=== PATIENT | female | born 1980 | race Caucasian/White ===

== ENCOUNTER → 2017-09-23 08:59 | Outpatient (POV) | payer OTHER, SELFPAY | PROVIDERS: Visit Provider Nurse Practitioner Acute Care | DX: Z00.00 Encounter for general adult medical examination without abnormal findings (principal) ==

== ENCOUNTER → 2018-05-28 13:28 | Outpatient (CLI) | payer OTHER, SELFPAY ==
--- NOTE | 2018-05-28 13:30 | MR_ITS ---
MR ankle LT wo/w con HISTORY: Lateral ankle pain following injury with bruising ITS.REASON: ankle pain ORDERING PHYSICIAN: Mary Espinosa DPM PATIENT AGE: 37 years Comparison: None TECHNIQUE: Standard multiplanar multiecho sequences are performed without and with gadolinium enhancement. FINDINGS: The distal aspect of the intraosseous ligament appears intact. The anterior tibiofibular ligament is thin and could be due to partial tear. The anterior talofibular ligament is not identified consistent with a complete tear. Small amount fluid is present at the region of the ATFL. The posterior tibiofibular and posterior talofibular ligaments are intact. The deltoid ligament appears intact There is decreased T1 and increased T2 signal above involving the medial aspect of the talus in its mid and anterior portion consistent with a bone contusion. This area shows some mild enhancement There are a few faint curvilinear areas of T1 hypointensity in this region which may indicate microfracture. The talar dome has an unremarkable appearance. Tendons about the ankle have an unremarkable appearance. IMPRESSION: 1. Complete tear of the anterior talofibular ligament with a small amount fluid in the expected region of the ATFL 2. Thinning of the anterior tibiofibular ligament which may indicate a partial tear. 3. Bone bruise/contusion with suspected microfracture of the mid to anterior aspect of the talus
== END ==
PROVIDERS: PCP Internal Medicine Adolescent Medicine; Visit Provider Podiatrist
DX: S93.402A Sprain of unspecified ligament of left ankle, initial encounter (principal); S93.432A Sprain of tibiofibular ligament of left ankle, initial encounter
CPT/HCPCS: 73223; A9576

== ENCOUNTER → 2018-06-20 11:05 | Outpatient (CLI) | payer OTHER, SELFPAY ==
--- NOTE | 2018-06-20 11:22 | XR_ITS ---
XR chest 2V HISTORY: Preoperative evaluation, follow-up abnormal chest x-ray ITS.REASON: PRO OP ORDERING PHYSICIAN: Mary Espinosa DPM PATIENT AGE: 37 years COMPARISON: 06/18/2017 FINDINGS: Unremarkable heart size. Increased soft tissue density is present along the right heart border consistent with prominent pericardial fat pad unchanged from the previous exam. The lungs are clear bilaterally. No lobar consolidation or collapse. There are mild degenerative changes in the thoracic spine. IMPRESSION: 1. No change with no acute finding 2. Right pericardial fat pad as a normal variant
[2018-06-20 12:02] LABS: Basophils % 0.4 % (0.1-2.0); Eosinophils # 0.4 K/mm3 (0.0-0.4); Eosinophils % 5.1 % (0.1-12.0); Hematocrit 39.8 % (37.0-47.0); Hemoglobin 12.9 g/dL (12.2-16.2); Lymphocytes # 2.2 K/mm3 (0.7-4.5); Lymphocytes % 25.5 % (10-50); Mean Corpuscular HGB Conc 32.3 g/dL (31.8-35.4); Mean Corpuscular Hemoglobin 28.6 pg (27.0-31.2); Mean Corpuscular Volume 88.7 fl (81-99); Monocytes # 0.5 K/mm3 (0.1-1.0); Monocytes % 5.3 % (1.7-9.3); Neutrophils # 5.5 K/mm3 (1.8-7.8); Neutrophils % 63.7 % (37.0-80.0); Platelet Count 219 K/mm3 (142-424); Red Blood Count 4.49 M/mm3 (4.20-5.40); Red Cell Distribution Width 14.3 % (11.5-17.5); White Blood Count 8.6 K/mm3 (4.8-10.8)
[2018-06-20 14:10] LABS: Anion Gap 15.7 mEq/L (5-15); Blood Urea Nitrogen 11 mg/dL (7-18); Calcium 8.7 mg/dL (8.5-10.1); Carbon Dioxide 23 mmol/L (21.0-32.0); Chloride 105 mmol/L (98-107); Creatinine,Serum 0.92 mg/dL (0.55-1.02); Estimated Glomerular Filt Rate 69 ml/min (>60); GFR (African American) 83 ML/MIN (>60); Glucose 112 mg/dL (74-106); Potassium 3.7 mmoL/L (3.5-5.1); Sodium 140 mmol/L (136-145)
[2018-06-23 09:34] LABS: Vitamin D 25 Hydroxy 25.7 ng/mL (30.0-100.0)
== END ==
PROVIDERS: PCP Internal Medicine Adolescent Medicine; Visit Provider Podiatrist
DX: Z01.818 Encounter for other preprocedural examination (principal); S93.432D Sprain of tibiofibular ligament of left ankle, subsequent encounter
CPT/HCPCS: 36415; 71046; 80048; 82652; 85025; 93005

== ENCOUNTER → 2018-07-10 10:56 | Outpatient (CLI) | payer OTHER, SELFPAY ==
--- NOTE | 2018-07-10 10:59 | XR_ITS ---
XR ankle wt bearing LT min 3V HISTORY: Follow-up surgery ITS.REASON: Post-op Views ORDERING PHYSICIAN: Mary Espinosa DPM PATIENT AGE: 37 years Comparison: 06/27/2018 FINDINGS: No significant change status post syndesmosis repair of the tibia and fibula with a lateral bone plate at the distal fibula with 2 lucent fixators from the lateral fibula to the medial aspect of the distal tibia anchored by 2 metallic buttons. There is good alignment.. There is a posterior splint IMPRESSION: Status post syndesmosis repair of the distal tib-fib with good alignment. The ankle mortise is preserved
--- NOTE | 2018-07-10 11:05 | HMH.ITSHM ---
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 []REGLAN,SIMVASTATIN,BENZEPRIL TRAZASONE
== END ==
PROVIDERS: PCP Internal Medicine Adolescent Medicine; Visit Provider Podiatrist
DX: S93.432A Sprain of tibiofibular ligament of left ankle, initial encounter (principal); Z98.890 Other specified postprocedural states
CPT/HCPCS: 73610

== ENCOUNTER → 2018-07-23 12:41 | Outpatient (CLI) | payer OTHER, SELFPAY ==
--- NOTE | 2018-07-23 12:44 | XR_ITS ---
XR ankle wt bearing LT min 3V HISTORY: Follow-up distal tib-fib repair ITS.REASON: postop views ORDERING PHYSICIAN: Mary Espinosa DPM PATIENT AGE: 37 years Comparison: 07/10/2018 FINDINGS: No significant change status post syndesmosis repair of the tibia and fibula with a lateral bone plate at the distal fibula with 2 lucent fixators from the lateral fibula to the medial aspect of the distal tibia anchored by 2 metallic buttons. There is good alignment.. Splint has been removed IMPRESSION: Status post syndesmosis repair of the distal tib-fib with good alignment. The ankle mortise is preserved
== END ==
PROVIDERS: PCP Internal Medicine Adolescent Medicine; Visit Provider Podiatrist
DX: Z98.890 Other specified postprocedural states (principal)
CPT/HCPCS: 73610

== ENCOUNTER → 2018-07-24 14:18 | Outpatient (CLI) | payer OTHER, SELFPAY ==
--- NOTE | 2018-07-24 14:24 | NVE_ITS ---
Venous Exam Indications: 729.5 Pain in limb. Patient had ankle surgery several months ago. She stopped taking Lovenox 07/19/18. She is complaining of calf pain in the posterior location. IMPRESSIONS 1. There is no evidence of significant Reflux. 2. No evidence of deep or superficial vein thrombosis involving the left lower extremity History: Left lower extremity pain. Left lower extremity venous duplex evaluation. Doppler flow study including spectral analysis, color and amaya scale imaging. Location: Vascular laboratory. Patient status: Outpatient. Tables: Venous flow and imaging: + +-------+ + Location Overall Flow properties + +-------+ + Left common femoral Patent Normal phasicity; spontaneous; normal augmentation; compressible + +-------+ + Left saphenofemoral junction Patent Compressible + +-------+ + Left profunda femoral Patent Compressible + +-------+ + Left femoral Patent Normal phasicity; spontaneous; normal augmentation; compressible + +-------+ + Left greater saphenous Patent Normal phasicity; spontaneous; normal augmentation; compressible + +-------+ + Left popliteal Patent Normal phasicity; spontaneous; normal augmentation; compressible + +-------+ + Left posterior tibial Patent Compressible + +-------+ + Left peroneal Patent Compressible + +-------+ + Left gastrocnemius Patent Compressible + +-------+ + Left soleal Patent Compressible + +-------+ + (Report amended ) Electronically signed by: Tony Salmon [id number]
== END ==
PROVIDERS: PCP Internal Medicine Adolescent Medicine; Visit Provider Podiatrist
DX: M79.662 Pain in left lower leg (principal)
CPT/HCPCS: 93971

== ENCOUNTER → 2018-08-04 16:56 | Outpatient (CLI) | payer OTHER, SELFPAY | PROVIDERS: Visit Provider Podiatrist | DX: Z98.890 Other specified postprocedural states (principal) | CPT/HCPCS: 87070; 87077; 87186; 87205 ==

== ENCOUNTER → 2018-08-11 11:02 | Outpatient (CLI) | payer OTHER, SELFPAY ==
--- NOTE | 2018-08-11 11:04 | XR_ITS ---
XR ankle wt min 3V HISTORY: Postop syndesmosis repair ITS.REASON: Post-op views ORDERING PHYSICIAN: Mary Espinosa DPM PATIENT AGE: 37 years Comparison: 07/23/2018 FINDINGS: No fracture or dislocation. No lytic or blastic change. There is normal mineralization.. The bone plate distal lateral fibula is stable and unchanged from previous study. 2 metallic fixators are again seen distal medial tibia. Horizontal radiolucencies are seen in the distal tibia and fibula from previous orthopedic hardware. The ankle mortise appears normal. There is no significant soft tissue swelling. IMPRESSION: Stable postoperative changes as noted
== END ==
PROVIDERS: PCP Internal Medicine Adolescent Medicine; Visit Provider Podiatrist
DX: Z98.890 Other specified postprocedural states (principal)
CPT/HCPCS: 73610

== ENCOUNTER 2018-10-15 08:00 | Outpatient (RCR) | payer OTHER, SELFPAY | END 2018-10-15 08:05 | disposition home or self-care (01) | LOC: PT 08:00 | PROVIDERS: Visit Provider Podiatrist | DX: Z98.890 Other specified postprocedural states (principal); M72.2 Plantar fascial fibromatosis; M76.62 Achilles tendinitis, left leg | CPT/HCPCS: 97010; 97033; 97110; 97140; 97163; 97164 ==

== ENCOUNTER → 2018-10-27 09:14 | Outpatient (CLI) | payer OTHER, SELFPAY ==
--- NOTE | 2018-10-27 09:17 | XR_ITS ---
XR ankle wt bearing LT min 3V HISTORY: Follow-up surgery ITS.REASON: post-op ORDERING PHYSICIAN: Mary Espinosa DPM PATIENT AGE: 38 years Comparison: 08/11/2018 FINDINGS: Status post distal tib-fib fixation as before with no change in orthopedic hardware with good alignment and preservation of the ankle mortise. There is a curvilinear lucency along the medial surface of the distal fibula which may indicate an old fracture. There is faint lucency along the lateral aspect of the talar dome not readily apparent on the previous exam. IMPRESSION: 1. Good alignment status post ORIF distal tib-fib. 2. Nonspecific lucency along the lateral aspect of the talar dome. Continued follow-up recommended. 3. Curvilinear lucency of the distal fibula medially suggesting an old fracture
== END ==
PROVIDERS: PCP Internal Medicine Adolescent Medicine; Visit Provider Podiatrist
DX: Z98.890 Other specified postprocedural states (principal)
CPT/HCPCS: 73610

== ENCOUNTER → 2019-05-04 10:26 | Outpatient (CLI) | payer OTHER, SELFPAY ==
--- NOTE | 2019-05-04 10:32 | XR_ITS ---
PROCEDURE: XR FOOT WT BEARING RT 3V CLINICAL INDICATION: comparison views the COMPARISON: FTR3 FOOT-RT-3 VIEWS from 10/07/2015 FTL3 FOOT-LT-3 VIEWS from 10/07/2015 [id number] XR foot LT min 3V from 06/27/2018 FINDINGS: No fracture or dislocation. No lytic or blastic change. There is normal mineralization. The joint spaces are well-preserved. No significant degenerative/arthritic changes. No erosive changes evident. Other findings:There is mild pes planus IMPRESSION: Mild pes planus otherwise negative. No significant change Dictated by: Tony Salmon MD 05/04/2019 11:07 Electronically signed by Tony Salmon MD in [place] 05/04/2019 11:07
--- NOTE | 2019-05-04 10:32 | XR_ITS ---
PROCEDURE: XR FOOT WT BEARING LT 3V CLINICAL INDICATION: pain Foot pain, bunion, COMPARISON: FTR3 FOOT-RT-3 VIEWS from 10/07/2015 FTL3 FOOT-LT-3 VIEWS from 10/07/2015 [id number] XR foot LT min 3V from 06/27/2018 FINDINGS: There is mild hallux valgus with mild osteoarthritic change and bunion formation at the 1st metatarsophalangeal junction. Minimal osteoarthritic changes present at the talonavicular joint. Postsurgical changes are present at the distal tib fib with a lateral bone plate at the fibula and 2 buttons along the medial aspect of the distal tibia posteriorly. Mild osteoarthritis of the 2nd MTP joint IMPRESSION: Mild hallux valgus and mild osteoarthritis of the 1st MTP and 2nd MTP joints and talonavicular region. Dictated by: Tony Salmon MD 05/04/2019 11:09 Electronically signed by Tony Salmon MD in [place] 05/04/2019 11:09
== END ==
PROVIDERS: PCP Internal Medicine Adolescent Medicine; Visit Provider Podiatrist
DX: M20.12 Hallux valgus (acquired), left foot (principal)
CPT/HCPCS: 73630

== ENCOUNTER → 2020-04-29 07:33 | Outpatient (CLI) | payer OTHER, SELFPAY ==
--- NOTE | 2020-04-29 07:38 | XR_ITS ---
PROCEDURE: XR KNEE LT 4V CLINICAL INDICATION: left knee pain COMPARISON: No exams were available for comparison FINDINGS: No fracture or dislocation. No lytic or blastic change. There is normal mineralization. The joint spaces are well-preserved. No significant degenerative/arthritic changes. No erosive changes evident. Other findings:None. IMPRESSION: No acute findings. Dictated by: Tony Salmon MD 04/29/2020 17:22 Tony Salmon MD in [place] 04/29/2020 17:22
== END ==
PROVIDERS: PCP Internal Medicine Adolescent Medicine; Visit Provider Orthopaedic Surgery
DX: M25.562 Pain in left knee (principal)
CPT/HCPCS: 73564

== ENCOUNTER → 2020-05-31 07:56 | Outpatient (CLI) | payer OTHER, SELFPAY ==
--- NOTE | 2020-05-31 07:56 | MR_ITS ---
PROCEDURE: MR KNEE LT WO CON CLINICAL INDICATION: Lt knee pain Fall with injury and pain, twisting injury with medial knee pain COMPARISON: CR XR KNEE LT 4V from 04/29/2020 TECHNIQUE: Routine multiplanar multi echo sequences are performed without gadolinium enhancement. FINDINGS: The cruciate ligaments are intact. There is some increased T2 signal of the superior aspect of the medial collateral ligament anteriorly with slight increase in T2 signal on both sides of the MCL consistent with a MCL sprain. A definite tear is not identified. The patellar and quadriceps tendon have an unremarkable appearance. No meniscal tear is evident. Mild osteoarthritic changes are present involving all 3 compartments. There is some thinning of the patellar cartilage with a focal area of increased T2 signal involving the posterior aspect of the patella along the lateral facet. There is small amount of pretibial edema. No significant knee joint effusion. IMPRESSION: 1. No evidence of internal derangement. 2. Suspect sprain of the medial collateral ligament. 3. Chondromalacia patella with mild osteoarthritis. Dictated by: Tony Salmon MD 05/31/2020 15:44 Tony Salmon MD in [place] 05/31/2020 15:44
== END ==
PROVIDERS: PCP Internal Medicine Adolescent Medicine; Visit Provider Orthopaedic Surgery
DX: M25.562 Pain in left knee (principal)
CPT/HCPCS: 73721

== ENCOUNTER 2020-06-09 08:30 | Outpatient (RCR) | payer OTHER, SELFPAY ==
--- NOTE | 2020-05-02 09:48 | HMH.PTOPEV ---
PT Outpatient Evaluation Rehab PT Outpatient Evaluation Start: 05/02/20 09:25 Freq: Status: Active Protocol: Document 05/02/20 09:25 [place] (Rec: 05/02/20 09:48 [place] [id number]) Electronically Signed By Ash Izquierdo, PT 05/02/20 09:25 Outpatient Therapy Subjective History Subjective History Pt reports L knee injury d/t slip/fall into pool on 04/26/20 . Pt reports L knee 'got bent backwards behind me when I fell'. Pt reports localized medial aspect L knee pain since incident, no instability , or clicking/catching/ buckling. Chief Complaint Pain,Stiff,Swelling Symptom Type Ache,Sharp,Dull Symptoms Relieved By Rest/Positioning,Ice Symptoms Aggravated By Standing,Physical Activity, Walking Prior Functional Limitations None Current Functional Limitations Standing,Squatting,Walking, Stairs Symptom Description Intermittent Level of pain today (0-10) 0 Pain scale - at its best (0-10) 0 Pain scale - at its worst (0-10) 7 Hip/Knee Eval Gait Observation General Gait Pattern Observation Antalgic Gait Palpation Tenderness left Knee Palpation Finding Tenderness Knee Palpation Overall Comment 3/4 MCL MMT Hip Flexion Strength Grade 4 Good Hip Abduction Strength Grade 4 Good Hip Adduction Strength Grade 3+ Fair+ Hip Extension Strength Grade 4 Good Hip External Rotation Strength Grade 3+ Fair+ Hip Internal Rotation Strength Grade 4 Good Knee Extension Strength Grade 5 Normal Knee Flexion Strength Grade 5 Normal ROM Knee Flexion Active Range of Motion ( 0-120 degrees) Effusion joint effusion knee exam standard left Mid - Patellar Circumerential Measure ( 48 cm) Special Tests Knee Anterior Colin Test Negative Left Knee Pivot Shift Test Negative Left Knee Valgus Stress Test Positive Left Knee Varus Stress Test Negative Left Knee Christophe Test Negative Left Outpatient Therapy Assessment Impairments Problems/Impairmments Palpation Tenderness,Impaired Range of Motion,Impaired Strength,Impaired Gait Pattern ,Impaired Walking,Impaired Standing,Impaired Stair Climbing,Impaired Squatting, Increased Edema,Subjective C/O Pain,Impaired Self Care/Self
--- NOTE | 2020-06-07 11:14 | HMH.RHREAS ---
Rehab Reassessment Rehab OP Re-assessment Start: 06/07/20 10:24 Freq: Status: Active Protocol: Document 06/07/20 11:05 [place] (Rec: 06/07/20 11:14 [id number]) Electronically Signed By Ash Izquierdo, PT 06/07/20 11:05 Rehab Re-assessment Subjective Subjective PT REPORTS SOME LINGERING L KNEE PAIN W/TKE @6-7/10, 0/10 PAIN AT REST, AND FEELS 80-85% BETTER OVERALL SINCE I EVAL Objective Objective Notes MMT: L HIP FLX 4+/5, L KNEE FLX AND EXT 5/5, L HIP ADD 4-4 +/5, L HIP ABD/EXT 4+/5, L HIP IR/ER 4+/5 TTP: L KNEE MCL/MEDIAL JT LINE 1/4 AROM: L KNEE FLX 0-125 Assessment Progress Assessment Progressing as Expected Assessment Notes PT W/IMPROVED STRENGTH, ROM, AND TTP Patient goals met STG' Goals Not Met STG'S 10/30 Plan Plan PT TO CONT. W/SKILLED P.T. TO MAKE FURTHER IMPROVEMENTS IN STRENGTH, ROM, AND TTP TO ALLOW FOR OPTIMAL FUNCTION Frequency of Therapy 1-2X/WK Duration of therapy 2-4WKS Time and Billing Re-Eval Time 15 Re-Eval Billing Units 1 PHYSICIAN CERTIFICATION: I certify the specified therapy services for Shila Abad are required, authorized, and reviewed every 30 days.
== END 2020-06-09 09:45 | disposition home or self-care (01) ==
LOC: PT 08:30
PROVIDERS: PCP Internal Medicine Adolescent Medicine; Visit Provider Orthopaedic Surgery
DX: M25.562 Pain in left knee (principal)
CPT/HCPCS: 97010; 97014; 97033; 97035; 97110; 97163; 97164; G0283

== ENCOUNTER → 2020-08-12 11:34 | Outpatient (CLI) | payer OTHER, SELFPAY ==
[2020-08-12 12:00] LABS: Basophils % 0.4 % (0.1-2.0); Eosinophils # 0.3 K/mm3 (0.0-0.4); Eosinophils % 2.7 % (0.1-12.0); Hemoglobin 13.3 g/dL (12.2-16.2); Lymphocytes # 2.8 K/mm3 (0.7-4.5); Lymphocytes % 29.8 % (10-50); Mean Corpuscular HGB Conc 32.3 g/dL (31.8-35.4); Mean Corpuscular Hemoglobin 27.9 pg (27.0-31.2); Mean Corpuscular Volume 86.2 fl (81-99); Mean Platelet Volume 7.9 fl (7.4-10.4); Monocytes # 0.5 K/mm3 (0.1-1.0); Monocytes % 5.6 % (1.7-9.3); Neutrophils # 5.8 K/mm3 (1.8-7.8); Neutrophils % 61.4 % (37.0-80.0); Platelet Count 239 K/mm3 (142-424); Red Blood Count 4.76 M/mm3 (4.20-5.40); Red Cell Distribution Width 16.1 % (11.5-17.5); White Blood Count 9.4 K/mm3 (4.8-10.8)
[2020-08-12 14:01] LABS: Chloride 102 mmol/L (98-107); Potassium 4.4 mmoL/L (3.5-5.1); Sodium 136 mmol/L (136-145)
[2020-08-12 14:03] LABS: Alanine Aminotransferase 38 U/L (12-78); Aspartate Amino Transferase 27 U/L (14-36); Blood Urea Nitrogen 13 mg/dl (7-17); Estimated Glomerular Filt Rate 80 ml/min (>60); GFR (African American) 97 ML/MIN (>60)
[2020-08-12 14:04] LABS: Albumin/Globulin Ratio 1.4 (1.1-1.8); Alkaline Phosphatase 72 U/L (38-126); Anion Gap 10.4 mEq/L (5-15); Bilirubin,Total 0.4 mg/dl (0.2-1.3); Calcium 9.3 mg/dl (8.4-10.2); Carbon Dioxide 28 mmol/L (22.0-30.0); Globulin 2.9 g/dL (1.3-3.2); Glucose 92 mg/dl (74-100); Total Protein,Serum 6.9 g/dl (6.3-8.2)
[2020-08-12 14:49] LABS: Hemoglobin A1C 5.4 % (4.0-6.0)
== END ==
PROVIDERS: Visit Provider Internal Medicine Adolescent Medicine
DX: I10 Essential (primary) hypertension (principal); D50.9 Iron deficiency anemia, unspecified
CPT/HCPCS: 36415; 80053; 83036; 85025

== ENCOUNTER → 2021-04-27 16:17 | Outpatient (CLI) | payer OTHER, SELFPAY ==
--- NOTE | 2021-04-27 16:17 | MM_ITS ---
PROCEDURE: MM DIG SCREENING MAMM BI W/CAD Digital Breast Tomosynthesis Included CLINICAL INDICATION: baseline mammogram COMPARISON: No exams were available for comparison TECHNIQUE: Standard CC and MLO images and 3D Tomosynthesis was obtained. R2 CAD reviewed. FINDINGS: The breasts are heterogeneously dense which may obscure small masses.. Benign-appearing nodules present in the upper outer aspect of the left breast which may represent a small lymph node measuring approximately 5 x 7 mm. No suspicious appearing mass, malignant-appearing microcalcification, architectural distortion, or skin thickening. Mildly prominent nodes are present in the axilla on both sides. Has patient had a recent Covid19 vaccine? IMPRESSION: Benign findings. Mildly prominent axillary lymph nodes. BI-RAD Category: 2 Benign Finding FOLLOW-UP: 1 YR 1 Year Follow-up There are mildly prominent axillary lymph nodes. Correlation with clinical parameters needed. (A letter has been sent to the patient regarding results of the study.) Dictated by: Tony Salmon MD 05/09/2021 08:15 Tony Salmon MD in [place] 05/09/2021 08:15
== END ==
PROVIDERS: PCP Internal Medicine Adolescent Medicine; Visit Provider Nurse Practitioner Obstetrics & Gynecology
DX: Z12.31 Encounter for screening mammogram for malignant neoplasm of breast (principal)
CPT/HCPCS: 77063; 77067

== ENCOUNTER → 2021-05-26 12:58 | Outpatient (CLI) | payer OTHER, SELFPAY | PROVIDERS: Visit Provider Nurse Practitioner Family | DX: R30.0 Dysuria (principal) | CPT/HCPCS: 87086; 87088; 87186 ==

== ENCOUNTER → 2022-03-22 10:08 | Outpatient (CLI) | payer OTHER, SELFPAY ==
[2022-03-22 11:05] LABS: Basophils # 0.1 K/mm3 (0-0.2); Eosinophils # 0.2 K/mm3 (0.0-0.4); Eosinophils % 2.9 % (0.1-12.0); Hematocrit 44.2 % (37.0-47.0); Hemoglobin 13.8 g/dL (12.2-16.2); Lymphocytes # 2.4 K/mm3 (0.7-4.5); Lymphocytes % 29.5 % (10-50); Mean Corpuscular HGB Conc 31.1 g/dL (31.8-35.4); Mean Corpuscular Hemoglobin 28.9 pg (27.0-31.2); Mean Corpuscular Volume 92.8 fl (81-99); Mean Platelet Volume 9.1 fl (7.4-10.4); Monocytes # 0.5 K/mm3 (0.1-1.0); Monocytes % 5.7 % (1.7-9.3); Neutrophils % 60.9 % (37.0-80.0); Platelet Count 264 K/mm3 (142-424); Red Blood Count 4.76 M/mm3 (4.20-5.40); Red Cell Distribution Width 13.8 % (11.5-17.5); White Blood Count 8.2 K/mm3 (4.8-10.8)
[2022-03-22 11:17] LABS: Hemoglobin A1C 5.3 % (4.0-6.0)
[2022-03-22 12:09] LABS: Alanine Aminotransferase 54 U/L (12-78); Albumin/Globulin Ratio 1.4 (1.1-1.8); Alkaline Phosphatase 104 U/L (38-126); Anion Gap 13.3 mEq/L (5-15); Aspartate Amino Transferase 36 U/L (14-36); Bilirubin,Total 0.3 mg/dl (0.2-1.3); Blood Urea Nitrogen 9 mg/dl (7-17); Calcium 9.1 mg/dl (8.4-10.2); Carbon Dioxide 24 mmol/L (22.0-30.0); Chloride 106 mmol/L (98-107); Estimated Glomerular Filt Rate 92 ml/min (>60); GFR (African American) 112 ML/MIN (>60); Globulin 2.9 g/dL (1.3-3.2); Glucose 91 mg/dl (74-100); Potassium 4.3 mmoL/L (3.5-5.1); Sodium 139 mmol/L (136-145); Total Protein,Serum 6.9 g/dl (6.3-8.2)
[2022-03-22 12:27] LABS: 25-OH Vitamin D, Total 42.6 ng/mL (30-100)
[2022-03-22 12:40] LABS: Thyroid Stimulating Hormone 1.23 uIU/mL (0.465-4.68)
[2022-03-22 12:59] LABS: Vitamin B12 451 pg/mL (239-931)
== END ==
PROVIDERS: PCP Nurse Practitioner Family; Visit Provider Nurse Practitioner Family
DX: Z00.00 Encounter for general adult medical examination without abnormal findings (principal); R53.83 Other fatigue; I10 Essential (primary) hypertension; E66.9 Obesity, unspecified; Z68.43 Body mass index [BMI] 50.0-59.9, adult; Z79.899 Other long term (current) drug therapy
CPT/HCPCS: 36415; 80053; 82306; 82607; 83036; 84443; 85025

== ENCOUNTER → 2022-04-09 16:35 | Outpatient (CLI) | payer OTHER, SELFPAY | PROVIDERS: PCP Nurse Practitioner Family; Visit Provider Nurse Practitioner Family | DX: R06.83 Snoring; G47.33 Obstructive sleep apnea (adult) (pediatric) | CPT/HCPCS: 95806 ==

== ENCOUNTER → 2022-05-07 07:52 | Outpatient (CLI) | payer OTHER, SELFPAY ==
--- NOTE | 2022-05-07 07:52 | MM_ITS ---
PROCEDURE INFORMATION: Exam: MG Bilateral Screening 3D Mammography Exam date and time: 05/07/2022 7:54 AM Age: 41 years old Clinical indication: Screening. No family history of breast cancer. TECHNIQUE: Imaging protocol: Bilateral Screening tomosynthesis and 2D mammography including computer-aided detection (CAD) when performed. COMPARISON: MG MM DIG SCREENING MAMM BI W/CAD 04/27/2021 4:16 PM FINDINGS: MAMMOGRAPHY: Breast composition: The breasts are heterogeneously dense, which may obscure small masses. Mass: No suspicious mass. Architectural distortion: None. Calcifications: No suspicious calcifications. Asymmetric density: None. Skin thickening: None. Axillary adenopathy: None. IMPRESSION: No mammographic evidence of malignancy. Annual screening is recommended unless otherwise clinically indicated. ASSESSMENT: BI-RADS Category 1: Negative
== END ==
PROVIDERS: PCP Nurse Practitioner Family; Visit Provider Nurse Practitioner Obstetrics & Gynecology
DX: Z12.31 Encounter for screening mammogram for malignant neoplasm of breast (principal)
CPT/HCPCS: 77063; 77067

== ENCOUNTER → 2023-05-08 07:54 | Outpatient (CLI) | payer OTHER, SELFPAY ==
--- NOTE | 2023-05-08 07:54 | MM_ITS ---
PROCEDURE INFORMATION: Exam: MG Bilateral Screening 3D Mammography Exam date and time: 05/08/2023 7:47 AM Age: 42 years old Clinical indication: Screening examination TECHNIQUE: Imaging protocol: Bilateral Screening tomosynthesis and 2D mammography including computer-aided detection (CAD) when performed. COMPARISON: 1. MG MM DIG SCREENING MAMM BI W/CAD 05/07/2022 7:54 AM 2. MG MM DIG SCREENING MAMM BI W/CAD 04/27/2021 4:16 PM FINDINGS: MAMMOGRAPHY: Breast composition: There are scattered areas of fibroglandular density. Mass: None. Architectural distortion: None. Calcifications: No suspicious calcifications. Asymmetric density: None. Skin thickening: None. Axillary adenopathy: None. IMPRESSION: No mammographic evidence of malignancy. Annual screening is recommended unless otherwise clinically indicated. ASSESSMENT: BI-RADS Category 1: Negative
== END ==
PROVIDERS: PCP Nurse Practitioner Family; Visit Provider Nurse Practitioner Obstetrics & Gynecology
DX: Z12.31 Encounter for screening mammogram for malignant neoplasm of breast (principal)
CPT/HCPCS: 77063; 77067

== ENCOUNTER → 2023-05-14 11:58 | Outpatient (CLI) | payer OTHER, SELFPAY ==
[2023-05-14 12:16] LABS: Basophils % 0.4 % (0.1-2.0); Eosinophils # 0.2 K/mm3 (0.0-0.4); Eosinophils % 1.8 % (0.1-12.0); Hematocrit 41.2 % (37.0-47.0); Lymphocytes # 2.5 K/mm3 (0.7-4.5); Lymphocytes % 27.2 % (10-50); Mean Corpuscular HGB Conc 33.9 g/dL (31.8-35.4); Mean Corpuscular Hemoglobin 30.9 pg (27.0-31.2); Mean Corpuscular Volume 91.2 fl (81-99); Mean Platelet Volume 8.2 fl (7.4-10.4); Monocytes # 0.5 K/mm3 (0.1-1.0); Monocytes % 5.2 % (1.7-9.3); Neutrophils % 65.4 % (37.0-80.0); Platelet Count 244 K/mm3 (142-424); Red Blood Count 4.52 M/mm3 (4.20-5.40); Red Cell Distribution Width 13.6 % (11.5-17.5); White Blood Count 9.2 K/mm3 (4.8-10.8)
[2023-05-14 13:27] LABS: Alanine Aminotransferase 48 U/L (12-78); Albumin Level 4.2 g/dl (3.5-5.0); Albumin/Globulin Ratio 1.4 (1.1-1.8); Alkaline Phosphatase 84 U/L (38-126); Anion Gap 12.1 mEq/L (5-15); Aspartate Amino Transferase 40 U/L (14-36); Bilirubin,Total 0.6 mg/dl (0.2-1.3); Blood Urea Nitrogen 9 mg/dl (7-17); Calcium 9.1 mg/dl (8.4-10.2); Carbon Dioxide 27 mmol/L (22.0-30.0); Chloride 102 mmol/L (98-107); Chol/HDL Ratio 3.4 (1-3.5); Cholesterol 156 mg/dl (140-200); Estimated Glomerular Filt Rate 79 ml/min (>60); GFR (African American) 95 ML/MIN (>60); Globulin 2.9 g/dL (1.3-3.2); Glucose 91 mg/dl (74-100); HDL Cholesterol 46 mg/dl (40-60); Potassium 4.1 mmoL/L (3.5-5.1); Sodium 137 mmol/L (136-145); Total Protein,Serum 7.1 g/dl (6.3-8.2); Triglycerides 116 mg/dl (30-150); VLDL Cholesterol 23 mg/dL (0-40)
[2023-05-14 13:59] LABS: Thyroid Stimulating Hormone 1.26 uIU/mL (0.465-4.68)
== END ==
PROVIDERS: PCP Nurse Practitioner Family; Visit Provider Nurse Practitioner Family
DX: Z00.00 Encounter for general adult medical examination without abnormal findings (principal); I10 Essential (primary) hypertension; R53.83 Other fatigue
CPT/HCPCS: 36415; 80053; 80061; 84443; 85025

== ENCOUNTER 2023-07-31 17:57 | Emergency (ER) | payer OTHER, SELFPAY ==
--- NOTE | 2023-07-31 18:03 | XR_ITS ---
PROCEDURE INFORMATION: Exam: XR Left Foot Exam date and time: 07/31/2023 6:04 PM Age: 42 years old Clinical indication: Injury or trauma; Other: Dropped heavy object on foot; Additional info: Dropped something on foot TECHNIQUE: Imaging protocol: Radiologic exam of the left foot. Views: 3 or more views. COMPARISON: CR XR FOOT WT BEARING LT 3V 05/04/2019 10:41 AM FINDINGS: Tubes, catheters and devices: Surgical hardware in place over the distal tibia/fibula Bones/joints: There is a hallux valgus deformity. There is a plantar calcaneal enthesophyte. Soft tissues: Normal. IMPRESSION: Postsurgical changes without acute injury or hardware abnormality.
[2023-07-31 18:50] VITALS: PULSE 87; RESP 18; TEMP 37; O2SAT 97; BMI 65.2
--- NOTE | 2023-07-31 19:16 | EXP.UTC ---
Discharge Plan Disposition Patient Disposition: Home, Self-Care Condition: Good Prescriptions Prescriptions: No Action levocetirizine 5 mg tablet 5 mg PO DAILY lisinopril 10 mg tablet 10 mg PO DAILY Patient Comments: TAKE ONE TABLET BY MOUTH EVERY DAY multivitamin Tablet 1 tab PO DAILY omeprazole 20 mg capsule,delayed release(DR/EC) 20 mg PO DAILY Patient Comments: TAKE ONE CAPSULE BY MOUTH EVERY DAY Mirena 20 mcg/24 hours (7 yrs) 52 mg intrauterine device 1 device INTRAUTERI ONCE bupropion HCl [Wellbutrin XL] 300 mg tablet extended release 24 hr 300 mg PO DAILY Referrals Follow up/Referrals: Zainab Zhao APRN [Primary Care Provider] - See instructions Activity Restrictions/Add. Instructions Additional Instructions/Restrictions: *weight bearing as tolerated *RICE, Rest the extremity, Ice 15-20 minutes 3-4 times daily, Compress- wear the telly wrap as discussed as much as possible to help reduce swelling and pain, Elevate the extremity when at rest *Post op shoe is for support and help control swelling, use it except in the shower. Be sure that is not to tight but not to loose either *Elevate when resting? *Ibuprofen 600-800mg every 6-8 hours as needed for pain an inflammation. If need something more can take Tylenol in between doses of Ibuprofen to help Immediately follow up with your family doctor for new or worsening of symptoms, or no noticeable improvement over the next 3-5 days Clinical Impressions Clinical Impression: Contusion of toe Qualifiers: Encounter type: initial encounter Toe: great toe Damage to nail status: without damage Laterality: left Qualified Code(s): S90.112A - Contusion of left great toe without damage to nail, initial encounter Instructions Patient Instructions: Acetaminophen (Alternative Therapy), How To Perform RICE (Rest, Ice, Compress, Elevate), Ibuprofen Discharge ED Provider: Jayne Nelson [facility] [place] HPI General Stated complaint: WC01/10 LT great toe inj Time Seen by Provider: 07/31/23 19:17 History of Present Illness Provider Complaint: Patient states that she was moving a box earlier and a display board fell over and struck her in the top of left great toe States that she has been having pain and bruising ever since and hurts when she tries to put weight on it so she came in to get it checked Related Data Home Medications Medication Instructions Recorded Confirmed levocetirizine 5 mg tablet 5 mg PO DAILY 11/02/19 07/31/23 lisinopril 10 mg tablet 10 mg PO DAILY 09/27/20 07/31/23 multivitamin 1 tab PO DAILY 09/27/20 07/31/23 levonorgestrel 21 mcg/24 hours (8 1 device intrauterine ONCE 10/02/21 07/31/23 yrs) 52 mg intrauterine device (Mirena) omeprazole 20 mg capsule,delayed 20 mg PO DAILY 10/02/21 07/31/23 release bupropion HCl 300 mg 24 hr tablet, 300 mg PO DAILY 01/01/23 07/31/23 extended release (Wellbutrin XL) Allergies Allergy/AdvReac Type Severity Reaction Status Date / Time No Known Allergies Allergy Verified 07/31/23 19:22 [facility] Disclaimer: The information contained in this section may have been updated after the patient was seen, as this information can be updated by other users. Medical History History of hypertension Left ankle injury Osteoarthritis of feet, bilateral Surgical History No pertinent past surgical history Family History Other Hypertension Social History Smoking Status: Never smoker alcohol intake: never substance use type: denies use current occupational status: employed Travel in the last 8 weeks: None household members: spouse housing: house current occupation: [employer] current occupational exposures/hazards: No caffeine: Yes ROS Obtained: Yes All systems reviewed & no additional complaints except as documented and Yes Systems reviewed as appropriate & no additional complaints except as documented Cardiovascular Cardiovascular: Reports system reviewed and no additional complaints, except as documented and Reports as per HPI Respiratory Respiratory: Reports system reviewed and no additional complaints, except as documented and Reports as per HPI Gastrointestinal Gastrointestingal: Reports system reviewed and no additional complaints, except as documented and as per HPI Musculoskeletal Musculoskeletal: Reports system reviewed and no additional complaints, except as documented and Reports as per HPI Comments: Pain, swelling and bruising to left great toe after display board fell on her toe Physical Exam General General appearance: alert and in no apparent distress Respiratory Respiratory exam: Present normal lung sounds bilaterally; Absent respiratory distress or wheezes Cardiovascular Cardiovascular exam: Present regular rate, normal rhythm and normal heart sounds Expanded Lower Extremity Exam Left: Foot/toe exam: Present tenderness, swelling and ecchymosis Top foot image: 1. bruising noted with mild swelling Neurovascular/Tendon exam: Present normal capillary refill; Absent pulse deficit Gait: observed and limited by pain Neurological Exam Neurological exam: Present alert, oriented X3 and normal gait Medical Decision Making Ricardo Inquiry Pt receiving controlled substance: No Ricardo was queried for this patient: No Orders (Tests/Meds): ORDERS Category Date Time Status XR foot LT min 3V Stat Exams 07/31/23 18:03 Completed Radiology Data #1: Image(s): Foot/Toes Image Reviewed: Yes I have reviewed radiologist's interpretation IMPRESSION: Postsurgical changes without acute injury or hardware abnormality. Procedures Orthopedic Splinting/Casting Injury #1: Side: left Lower Extremity Immobilizer: post-op shoe Post Cast/Splinting Neuro Status: intact and no change Post Cast/Splinting Vasc Status: intact and no change
[2023-07-31 19:34] VITALS: BP 128/64; PULSE 87; RESP 18; TEMP 37; O2SAT 97
== END 2023-07-31 19:34 | disposition home or self-care (01) ==
PROVIDERS: Emergency Provider Nurse Practitioner; PCP Nurse Practitioner Family
DX: S90.112A Contusion of left great toe without damage to nail, initial encounter (principal); W20.8XXA Other cause of strike by thrown, projected or falling object, initial encounter
CPT/HCPCS: 73630; 99204; 99212; G0463

== ENCOUNTER 2023-09-03 09:36 | Outpatient (CLI) | payer OTHER, SELFPAY ==
[2023-09-03 10:21] LABS: Chloride 105 mmol/L (98-107); Potassium 4.2 mmoL/L (3.5-5.1); Sodium 135 mmol/L (136-145)
[2023-09-03 10:23] LABS: Blood Urea Nitrogen 8 mg/dl (7-17); Estimated Glomerular Filt Rate 79 ml/min (>60); GFR (African American) 95 ML/MIN (>60)
[2023-09-03 10:24] LABS: Alanine Aminotransferase 44 U/L (12-78); Albumin Level 4.3 g/dl (3.5-5.0); Albumin/Globulin Ratio 1.6 (1.1-1.8); Alkaline Phosphatase 93 U/L (38-126); Anion Gap 8.2 mEq/L (5-15); Aspartate Amino Transferase 32 U/L (14-36); Bilirubin,Total 1.2 mg/dl (0.2-1.3); Calcium 8.9 mg/dl (8.4-10.2); Carbon Dioxide 26 mmol/L (22.0-30.0); Globulin 2.7 g/dL (1.3-3.2); Glucose 94 mg/dl (74-100)
== END 2023-09-03 23:59 ==
LOC: LAB 09:37
PROVIDERS: PCP Nurse Practitioner Family; Visit Provider Nurse Practitioner Family
DX: R74.8 Abnormal levels of other serum enzymes (principal)
CPT/HCPCS: 36415; 80053

== ENCOUNTER 2023-10-10 08:24 | Day surgery (SDC) | payer OTHER, SELFPAY ==
[2023-10-07 12:22] VITALS: BMI 47.2
[2023-10-10 08:39] VITALS: BP 146/89; PULSE 103; RESP 16; TEMP 36.5; O2SAT 97
[2023-10-10] MEDS: LACTATED RINGERS 1000ML 1,000 ML 25 ML IV (08:51)
--- NOTE | 2023-10-10 09:01 | EXP.ANES.CKL ---
[facility] Disclaimer: The information contained in this section may have been updated after the patient was seen, as this information can be updated by other users. 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 current occupational exposures/hazards: No caffeine: Yes [facility] Anesthesia Checklist Patient Identification Patient Identification: Arm Band and Verbal (Name & ) Structural Data Admitted From: Home Planned Operative Procedure/s: Colonoscopy Consent for Planned Operative Procedure(s) Verified: Yes NPO Status Verified Time NPO: 00:00 Chart Verification Results Verified: HCG Additional verifications Anesthesia Reactions: No Hx Blood Transfusions: No Blood Transfusion Reaction: No Airway Assessment Mallampati Score:: Class III C-Spine Mobility Assessed: Yes TMJ Mobility Assessed: Yes Dentition: Good Dentition Neurological Assessment Level of Consciousness: Awake Hx Seizures: No Numbness or tingling in extremities: No Anesthesia Plan Anesthesia Risk discussed: Yes Anesthesia Plan: Verified ASA Class: III Anesthesia Type: MAC
[2023-10-10 09:08] LABS: Urine Pregnancy, HCG Qual. Negative (Negative)
[2023-10-10 10:00] VITALS: O2SAT 97
--- NOTE | 2023-10-10 10:18 | HMH.SCOPE ---
Procedure: Date: 10/10/23 Patient Date of :: 1980 Procedure Performed:: Screening Colonoscopy Indications:: History of polyps Performing Provider:: Elida Rangel MD Referring Provider:: Zainab Zhao APRN Sedation:: Propofol Procedure:: After placing the patient in the left lateral decubitus position, the colonoscopy was gently inserted into the rectum and under direct visualization advanced to the cecum which was identified by transillumination in the right lower quadrant, identification of the ileocecal valve, appendiceal orifice, and cecal strap. Color, texture, mucosa, and anatomy of the colon were carefully examined with the scope. Findings:: Anal canal: normal Rectum: normal Sigmoid colon: normal without polyps or inflammatory changes Descending colon: normal without polyps or inflammatory changes Splenic flexure: normal Transverse colon: normal without polyps or inflammatory changes Hepatic flexure: normal Ascending colon: normal without polyps or inflammatory changes Cecum: normal Terminal ileum: not visualized Impression: Normal colonoscopy Recommendations:: Follow up examination in about FIVE years or so, sooner if clinically indicated in view of history of polyps Complications:: None Estimated blood obtained (mL): 0 Colonoscopy Component Colonoscopy Component Was a colonoscopy performed during today's procedure?: Yes Recommended follow up colonoscopy of at least 10 years?: No If no, follow up colonoscopy recommended in ___ years?: Five Reason for not recommending >/= 10 yr follow-up interval?: Hx of polyps
[2023-10-10 10:20] VITALS: BP 89/55; PULSE 86; RESP 16; TEMP 36.3; O2SAT 92
[2023-10-10 10:30] VITALS: BP 127/77; PULSE 91; RESP 16; O2SAT 92
[2023-10-10 10:40] VITALS: BP 125/77; PULSE 88; RESP 18; O2SAT 94
[2023-10-10 10:50] VITALS: BP 113/64; PULSE 75; RESP 16; O2SAT 96
== END 2023-10-10 10:55 | disposition home or self-care (01) ==
PROVIDERS: PCP Nurse Practitioner Family; Visit Provider Internal Medicine Gastroenterology
PROC: (CPT 45378; principal; 2023-10-10 09:30)
DX: Z12.11 Encounter for screening for malignant neoplasm of colon (principal); Z86.010 Personal history of colon polyps
CPT/HCPCS: 45378; 81025

== ENCOUNTER 2024-05-19 07:59 | Outpatient (CLI) | payer OTHER, SELFPAY ==
--- NOTE | 2024-05-19 08:00 | MM_ITS ---
PROCEDURE INFORMATION: Exam: MG Bilateral Screening 3D Mammography Exam date and time: 05/19/2024 7:46 AM Age: 43 years old Clinical indication: Screening exam. TECHNIQUE: Imaging protocol: Bilateral Screening tomosynthesis and 2D mammography including computer-aided detection (CAD) when performed. COMPARISON: 1. MG MM DIG SCREENING MAMM BI W/CAD 05/08/2023 7:47 AM 2. MG MM DIG SCREENING MAMM BI W/CAD 05/07/2022 7:54 AM FINDINGS: MAMMOGRAPHY: Breast composition: There are scattered areas of fibroglandular density. Mass: No suspicious masses. Architectural distortion: None. Calcifications: No suspicious calcifications. Asymmetric density: None. Skin thickening: None. Axillary adenopathy: None. IMPRESSION: No mammographic evidence of malignancy. Annual screening is recommended unless otherwise clinically indicated. ASSESSMENT: BI-RADS Category 1: Negative.
== END 2024-05-19 23:59 | disposition home or self-care (01) ==
LOC: RAD 08:00
PROVIDERS: PCP Nurse Practitioner Family; Visit Provider Nurse Practitioner Obstetrics & Gynecology
DX: Z12.31 Encounter for screening mammogram for malignant neoplasm of breast (principal)
CPT/HCPCS: 77063; 77067

== ENCOUNTER 2024-06-09 09:15 | Outpatient (POV) | payer OTHER, SELFPAY | END 2024-06-09 23:59 | disposition home or self-care (01) | LOC: SC 06-10 06:46 | PROVIDERS: Visit Provider Dermatology | DX: Z00.00 Encounter for general adult medical examination without abnormal findings (principal) ==

== ENCOUNTER 2024-06-15 09:10 | Outpatient (CLI) | payer OTHER, SELFPAY ==
[2024-06-15 10:01] LABS: Chloride 106 mmol/L (98-107); Sodium 140 mmol/L (136-145)
[2024-06-15 10:02] LABS: Potassium 4.2 mmoL/L (3.5-5.1)
[2024-06-15 10:04] LABS: Alanine Aminotransferase 33 U/L (12-78); Albumin/Globulin Ratio 1.5 (1.1-1.8); Anion Gap 14.2 mEq/L (5-15); Aspartate Amino Transferase 24 U/L (14-36); Blood Urea Nitrogen 9 mg/dl (7-17); Carbon Dioxide 24 mmol/L (22.0-30.0); Estimated Glomerular Filt Rate 78 ml/min (>60); GFR (African American) 95 ML/MIN (>60); Globulin 2.6 g/dL (1.3-3.2); Total Protein,Serum 6.6 g/dl (6.3-8.2)
[2024-06-15 10:05] LABS: Alkaline Phosphatase 74 U/L (38-126); Bilirubin,Total 0.5 mg/dl (0.2-1.3); Calcium 9.2 mg/dl (8.4-10.2); Chol/HDL Ratio 3.2 (1-3.5); Cholesterol 146 mg/dl (140-200); Glucose 98 mg/dl (74-100); HDL Cholesterol 45 mg/dl (40-60); Triglycerides 88 mg/dl (30-150); VLDL Cholesterol 18 mg/dL (0-40)
[2024-06-15 10:16] LABS: Direct LDL Cholesterol 88.86 mg/dL (100-129)
== END 2024-06-15 23:59 | disposition home or self-care (01) ==
LOC: LAB 09:11
PROVIDERS: PCP Nurse Practitioner Family; Visit Provider Nurse Practitioner Family
DX: I10 Essential (primary) hypertension (principal); Z00.00 Encounter for general adult medical examination without abnormal findings
CPT/HCPCS: 36415; 80053; 80061

== ENCOUNTER 2024-12-29 08:27 | Outpatient (CLI) | payer OTHER, SELFPAY ==
[2024-12-29 09:48] LABS: Basophils % 0.3 % (0.1-2.0); Eosinophils # 0.1 Kmm3 (0.0-0.4); Eosinophils % 1.8 % (0.1-12.0); Hematocrit 41.3 % (37.0-47.0); Immature Granulocytes # 0.03 10^3uL; Immature Granulocytes % 0.4 %; Lymphocytes # 2.1 K/mm3 (0.7-4.5); Lymphocytes % 26.6 % (10-50); Mean Corpuscular HGB Conc 33.9 g/dL (31.8-35.4); Mean Corpuscular Hemoglobin 30.5 pg (27.0-31.2); Mean Platelet Volume 10.7 fl (7.4-10.4); Monocytes # 0.5 K/mm3 (0.1-1.0); Monocytes % 6.7 % (1.7-9.3); Neutrophils % 64.2 % (37.0-80.0); Nucleated Red Blood Cells # 0 10^3/uL; Nucleated Red Blood Cells % 0 %; Platelet Count 199 K/mm3 (142-424); Red Blood Count 4.59 M/mm3 (4.20-5.40); Red Cell Distribution Width 12.8 % (11.5-17.5); Red Cell Distribution Width-SD 41.5 fL; White Blood Count 7.8 K/mm3 (4.8-10.8)
[2024-12-29 10:11] LABS: Albumin Level 4.2 g/dl (3.5-5.0); Chloride 108 mmol/L (98-107); Potassium 4.2 mmoL/L (3.5-5.1); Sodium 138 mmol/L (136-145)
[2024-12-29 10:13] LABS: Alanine Aminotransferase 32 U/L (12-78); Aspartate Amino Transferase 26 U/L (14-36); Blood Urea Nitrogen 10 mg/dl (7-17); Estimated Glomerular Filt Rate 91 ml/min (>60); GFR (African American) 110 ML/MIN (>60)
[2024-12-29 10:14] LABS: Albumin/Globulin Ratio 1.6 (1.1-1.8); Alkaline Phosphatase 74 U/L (38-126); Anion Gap 10.2 mEq/L (5-15); Bilirubin,Total 0.7 mg/dl (0.2-1.3); Calcium 9.1 mg/dl (8.4-10.2); Carbon Dioxide 24 mmol/L (22.0-30.0); Chol/HDL Ratio 3.8 (1-3.5); Cholesterol 141 mg/dl (140-200); Globulin 2.7 g/dL (1.3-3.2); Glucose 98 mg/dl (74-100); HDL Cholesterol 37 mg/dl (40-60); Total Protein,Serum 6.9 g/dl (6.3-8.2); Triglycerides 103 mg/dl (30-150); VLDL Cholesterol 21 mg/dL (0-40)
== END 2024-12-29 23:59 | disposition home or self-care (01) ==
LOC: LAB 08:29
PROVIDERS: PCP Nurse Practitioner Family; Visit Provider Nurse Practitioner Family
DX: Z00.00 Encounter for general adult medical examination without abnormal findings (principal); D50.9 Iron deficiency anemia, unspecified; I10 Essential (primary) hypertension
CPT/HCPCS: 36415; 80053; 80061; 85025

== ENCOUNTER 2025-03-06 20:00 | Outpatient (CLI) | payer OTHER, SELFPAY | END 2025-03-06 23:59 | disposition home or self-care (01) | LOC: LAB.DROPOF 03-08 11:53 | PROVIDERS: PCP Nurse Practitioner Family; Visit Provider Nurse Practitioner Family | DX: R35.0 Frequency of micturition (principal) | CPT/HCPCS: 87086 ==

== ENCOUNTER 2025-04-19 09:54 | Outpatient (RCR) | payer OTHER, SELFPAY ==
--- NOTE | 2025-04-19 11:04 | HMH.OTOPEV ---
OT Evaluation Rehab OT Outpatient Eval Start: 04/19/25 10:39 Freq: Status: Active Protocol: Document 04/19/25 10:39 KAN (Rec: 04/19/25 11:02 [id number] E-signed By Sonia Mccarthy, OT Outpatient Therapy Subjective History Subjective History Pt is a 44 y/o female who reports to outpatient therapy services due to complaints of constant pain and limited ROM in L shoulder. Pt claims she slipped out of the bathtub and caught herself ~ 2 1/2 months ago and suspects that may be the cause of injury. pt reports she received a steroid injection and anti-inflammatory medication with no improvements. At this time she has not had a MRI completed. Pt does demonstrate with decreased AROM and strength at L shoulder. Pt has most of her pain with internal rotation and abduction at L shoulder. Pt is right hand dominant. Pt will continue to be seen for OT services in order to improve overall functional use of L UE. New diagnosis of No cancer in past 12 months? Chief Complaint Pain,Weakness Symptom Type Ache,Throb,Numbness,Shooting Symptoms Relieved By Rest/Positioning Prior Functional None Limitations Current Functional Reaching,Housework,Dressing,Desk Work/Reading,Sleeping Limitations Symptom Description Constant but Variable Level of pain today 1 (0-10) Pain scale - at its 1 best (0-10) Pain scale - at its 7 worst (0-10) Shoulder/Elbow Eval Shoulder Objective Measurements Shoulder ROM Left Shoulder Abduction 130 Active Range of Motion (degrees) Shoulder Flexion 158 Active Range of Motion (degrees) Query Text: Shoulder External 60 Rotation Active Range of Motion ( degrees) Shoulder Internal 20 Rotation Active Range of Motion ( degrees) pain with active ROM left shoulder exam standard Shoulder MMT Shoulder Abduction 3+ Fair+ Strength Grade Shoulder Flexion 3+ Fair+ Strength Grade Shoulder External 3+ Fair+ Rotation Strength Grade Shoulder Internal 3+ Fair+ Rotation Strength Grade Shoulder Strength Sitting Patient Testing Position Elbow Objective Measurements QuickDASH Activities Please rate your ability to do the following activities in the last week by selecting the number below the appropriate response. 1. Open a tight or No difficulty new jar. 2. 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 3. Carry a shopping No difficulty bag or briefcase. 4. Wash your back. Severe difficulty 5. Use a knife to No difficulty cut food. 6. Recreational Severe difficulty activities in which you take some force or impact through your arm, shoulder, or hand (e.g., golf, hammering, tennis, etc.). 7. During the past Moderately week, to what extent has your arm, shoulder or hand problem interfered with your normal social activities with family, friends , neighbors or groups? 8. During the past Slightly limited week, were you limited in your work or other regular daily activites as a result of your arm, shoulder or hand problem? 9. Arm, shoulder or Moderate hand pain. 10. Tingling (pins Moderate and needles) in your arm, shoulder or hand. 11. During the past Severe difficulty week, how much difficulty have you had sleeping because of the pain in your arm, shoulder or hand? Quick DASH 29 OT Patient Goals OT Patient Goals OT Short Term Short term goals: Patient Goals 1. Pt will increase left shoulder flexion to 160 degrees in order to complete daily overhead tasks independently ~50% of the time. 2. Pt will increase L shoulder abduction to 140 degrees to complete upper body dressing independently ~ 50% of the time. 3. Pt will increase L shoulder ER/IR to 75 degrees (ER ) and 45 degrees (IR) in order to complete lower body dressing (putting on and taking off belt) independently ~50% of the time. 4. Pt will increase strength to 4-/5 throughout left shoulder in order to complete heavier household tasks ( laundry, mopping, vacuuming) independently ~50% of the time. 5. Pt will verbalize decreased pain levels at worst in L shoulder to a 5/10 in order to complete daily ADLs independently ~50% of the time. 6. Pt will demonstrate improved endurance by completing left shoulder exercises for ~20 minutes prior to rest break in order to increase his tolerance for daily work activities. 7. Pt will demonstrate independence with HEP of AAROM exercises to increase overall functional use of left shoulder in daily activities ~75% of the time. OT Skilled Nursing Patient 1. Pt will increase L shoulder flexion to 165 degrees Goals in order to complete daily overhead tasks independently ~75% of the time. 2. Pt will increase L shoulder abduction to 150 degrees to complete upper body dressing independently ~ 75% of the time. 3. Pt will increase L shoulder ER/IR to 70 degrees (ER ) and 60 degrees (IR)in order to complete lower body dressing (putting on and taking off belt) independently ~75% of the time. 4. Pt will increase strength to 4+/5 throughout left shoulder in order to complete heavier household tasks ( laundry, mopping, vacuuming) independently ~75% of the time. 5. Pt will verbalize decreased pain levels at worst in L shoulder to a 3/10 in order to complete daily ADLs independently ~75% of the time. 6. Pt will demonstrate improved endurance by completing L shoulder exercises for ~30 minutes prior to rest break in order to increase his tolerance for daily work activities. 7. Pt will demonstrate independence with HEP of Rotator cuff strengthening exercises to increase overall functional use of L shoulder for daily activities ~90% of the time. OT Outpatient Assessment Impairments Problems/Impairments Palpation Tenderness,Impaired Range of Motion,Impaired Strength,Impaired Endurance,Impaired Lifting,Impaired Household Care,Impaired Recreational Activities, Impaired Work Activities,Subjective C/O Pain Prognosis Rehab Potential Good Clinical Impression Consistent with Yes Diagnosis Outpatient Therapy Plan of Care Treatment Plan May Include Therapeutic Exercise Yes Including Home Exercise Program Manual Therapy Yes Techniques Neuromuscular Re- Yes education Thermal Modalities Yes Electrical Yes Stimulation Ultrasound/ Yes Phonophoresis Iontophoresis Yes Orthotics/Bracing/ Yes Splinting Massage Yes Eval/Re-Eval Yes Frequency Times per week 2 Duration Number of Weeks 6 Addendums This patient is a No candidate for social or vocational rehab ? Patient/Guardian Yes verbally acknowledges understanding of treatment program and consents to further treatment? Patient/Guardian Yes verbally acknowledges understanding of diagnosis, prognosis and goals for treatment? Eval Complexity OT Charge 22432 - Moderate Complexity PHYSICIAN CERTIFICATION: I certify the specified therapy services for Shila Abad are required, authorized, and reviewed every 30 days.
== END 2025-04-19 23:59 | disposition home or self-care (01) ==
LOC: OT 09:54
PROVIDERS: PCP Nurse Practitioner Family; Visit Provider Nurse Practitioner Family
DX: M25.512 Pain in left shoulder (principal)
CPT/HCPCS: 97166

== ENCOUNTER 2025-05-20 09:00 | Outpatient (RCR) | payer OTHER, SELFPAY ==
--- NOTE | 2025-05-17 11:03 | HMH.RHREAS ---
Rehab Reassessment Rehab OP Re-assessment Start: 04/21/25 10:02 Freq: Status: Active Protocol: Document 05/17/25 10:12 KAN (Rec: 05/17/25 11:03 [employer] [id number]) E-signed By Sonia Mccarthy OT QuickDASH Activities Please rate your ability to do the following activities in the last week by selecting the number below the appropriate response. 1. Open a tight or No difficulty new jar. 2. 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 3. Carry a shopping No difficulty bag or briefcase. 4. Wash your back. Moderate difficulty 5. Use a knife to No difficulty cut food. 6. Recreational Mild difficulty activities in which you take some force or impact through your arm, shoulder, or hand (e.g., golf, hammering, tennis, etc.). 7. During the past Slightly week, to what extent has your arm, shoulder or hand problem interfered with your normal social activities with family, friends , neighbors or groups? 8. During the past Slightly limited week, were you limited in your work or other regular daily activites as a result of your arm, shoulder or hand problem? 9. Arm, shoulder or Moderate hand pain. 10. Tingling (pins None and needles) in your arm, shoulder or hand. 11. During the past Mild difficulty week, how much difficulty have you had sleeping because of the pain in your arm, shoulder or hand? Quick DASH 20 Rehab Re-assessment Subjective Subjective I do see progress with it. Objective Objective Notes Pt continues to be seen twice a week for outpatient OT services in order to address left shoulder deficits. Each session, pt engages in L shoulder AROM, AAROM, and strengthening exercises. Pt also receives PROM manual stretching to left shoulder in all planes: flexion, abduction, ER, and IR. Modalities are provided in order to decrease pain/inflammation. Assessment Progress Assessment Progressing as Expected Assessment Notes Pt very consistent about attending therapy sessions. Pt demonstrates improvement with AROM at left shoulder. Flex and abduction are now within normal limits. She continues to experience decreased AROM with ER and IR. She also has most of her pain with these two motions. Pt rates her worst pain now at 4/10. She does not feel her pain is as often, unless she moves her shoulder in ER or IR. At this time she does not have a follow up with PCP. Current L shoulder AROM Flex: 175 degrees Abd: 170 degrees ER: 80 degrees IR: 45 degrees Goals Met: Short term goals: 1. Pt will increase left shoulder flexion to 160 degrees in order to complete daily overhead tasks independently ~50% of the time. 2. Pt will increase L shoulder abduction to 140 degrees to complete upper body dressing independently ~ 50% of the time. 3. Pt will increase L shoulder ER/IR to 75 degrees (ER ) and 45 degrees (IR) in order to complete lower body dressing (putting on and taking off belt) independently ~50% of the time. 4. Pt will increase strength to 4-/5 throughout left shoulder in order to complete heavier household tasks ( laundry, mopping, vacuuming) independently ~50% of the time. 5. Pt will verbalize decreased pain levels at worst in L shoulder to a 5/10 in order to complete daily ADLs independently ~50% of the time. 6. Pt will demonstrate improved endurance by completing left shoulder exercises for ~20 minutes prior to rest break in order to increase his tolerance for daily work activities. 7. Pt will demonstrate independence with HEP of AAROM exercises to increase overall functional use of left shoulder in daily activities ~75% of the time. OT Patient Goals OT Short Term All short term goals have been met at this time. Patient Goals OT Fdc Patient 1. Pt will increase L shoulder flexion to 180 degrees Goals in order to complete daily overhead tasks independently ~75% of the time. 2. Pt will increase L shoulder abduction to 180 degrees to complete upper body dressing independently ~ 75% of the time. 3. Pt will increase L shoulder ER/IR to 90 degrees (ER ) and 60 degrees (IR)in order to complete lower body dressing (putting on and taking off belt) independently ~75% of the time. 4. Pt will increase strength to 4+/5 throughout left shoulder in order to complete heavier household tasks ( laundry, mopping, vacuuming) independently ~75% of the time. 5. Pt will verbalize decreased pain levels at worst in L shoulder to a 3/10 in order to complete daily ADLs independently ~75% of the time. 6. Pt will demonstrate improved endurance by completing L shoulder exercises for ~30 minutes prior to rest break in order to increase his tolerance for daily work activities. 7. Pt will demonstrate independence with HEP of Rotator cuff strengthening exercises to increase overall functional use of L shoulder for daily activities ~90% of the time. Plan Plan Continue with OT plan of care at this time in order to address all L shoulder deficits to increase overall functional ability at [facility] [place]. Frequency of Therapy 2x's a week Duration of Therapy 4 more weeks Therapeutic Exercise Yes Including Home Exercise Program Manual Therapy Yes Techniques Neuromuscular Re- Yes education Therapeutic Yes Activities to Return to Previous Functional/Work Level Thermal Modalities Yes Electrical Yes Stimulation Ultrasound/ Yes Phonophoresis Iontophoresis Yes Massage Yes Eval/Re-Eval Yes Time and Billing Re-Eval Time 8 Re-Eval Billing 0 Units Charge for OT No reassessment? PHYSICIAN CERTIFICATION: I certify the specified therapy services for Shila Abad are required, authorized, and reviewed every 30 days.
== END 2025-05-20 23:59 | disposition home or self-care (01) ==
LOC: OT 09:00
PROVIDERS: PCP Nurse Practitioner Family; Visit Provider Nurse Practitioner Family
DX: M25.512 Pain in left shoulder (principal)
CPT/HCPCS: 97014; 97110; 97140; G0283

== ENCOUNTER 2025-05-21 15:50 | Outpatient (CLI) | payer OTHER, SELFPAY ==
--- NOTE | 2025-05-21 16:00 | MM_ITS ---
PROCEDURE INFORMATION: Exam: MG Bilateral Screening 3D Mammography Exam date and time: 05/21/2025 3:58 PM Age: 44 years old Clinical indication: Screening examination. TECHNIQUE: Imaging protocol: Bilateral Screening tomosynthesis and 2D mammography including computer-aided detection (CAD) when performed. COMPARISON: 1. MG MM DIG SCREENING MAMM BI W/CAD 05/19/2024 7:46 AM 2. MG MM DIG SCREENING MAMM BI W/CAD 05/08/2023 7:47 AM FINDINGS: MAMMOGRAPHY: Breast composition: There are scattered areas of fibroglandular density. Mass: None. Architectural distortion: None. Calcifications: No suspicious calcifications. Asymmetric density: None. Skin thickening: None. Axillary adenopathy: None. IMPRESSION: No mammographic evidence of malignancy. Annual screening is recommended unless otherwise clinically indicated. ASSESSMENT: BI-RADS Category 1: Negative.
== END 2025-05-21 23:59 | disposition home or self-care (01) ==
LOC: RAD 15:50
PROVIDERS: PCP Nurse Practitioner Family; Visit Provider Nurse Practitioner Obstetrics & Gynecology
DX: Z12.31 Encounter for screening mammogram for malignant neoplasm of breast (principal); R92.323 Mammographic fibroglandular density, bilateral breasts
CPT/HCPCS: 77063; 77067

== ENCOUNTER 2025-05-24 16:11 | Outpatient (CLI) | payer OTHER, SELFPAY ==
--- NOTE | 2025-05-24 16:14 | MR_ITS ---
PROCEDURE INFORMATION: Exam: MR Left Upper Extremity Joint Without Contrast; Shoulder Exam date and time: 05/24/2025 4:34 PM Age: 44 years old Clinical indication: Pain; Shoulder; Left; Additional info: Acute pain lt shoulder TECHNIQUE: Imaging protocol: Magnetic resonance imaging of the left upper extremity without contrast. Exam focused on the shoulder. COMPARISON: No relevant prior studies available. FINDINGS: Bones/joints: Few small intraosseous paralabral cysts at the posterior glenoid. Mild cephalad migration of the humeral head relative to the glenoid. Mild thinning of the glenoid cartilage inferiorly. [id number] acromioclavicular joint degenerative change with mild capsular thickening and trace fluid. Impression. Type 3 acromion with associated mild subacromial space narrowing and trace subacromial fluid. Glenoid labrum: Tiny nondisplaced tear of the superior labrum from anterior to posterior superior inferior. Almost in a 360 degree morphology. Supraspinatus tendon: Mild tendinosis of the supraspinatus tendon with articular and bursal sided fraying. No distinct tear. Infraspinatus tendon: Infraspinatus tendon is unremarkable. Subscapularis tendon: Unremarkable. No evidence of tear. Teres minor tendon: Unremarkable. No evidence of tear. Tendon of biceps brachii: Mild tendinosis and tenosynovitis of the extra-articular biceps. [id number] tendinosis of the intra-articular biceps up to the labral anchor. Glenohumeral ligaments: Unremarkable. Soft tissues: Unremarkable. IMPRESSION: 1. Tiny nondisplaced tear of the superior labrum from anterior to posterior superior inferior. Almost in a 360 degree morphology. 2. Mild tendinosis and tenosynovitis of the extra-articular biceps. [id number] tendinosis of the intra-articular biceps up to the labral anchor.
== END 2025-05-24 23:59 | disposition home or self-care (01) ==
LOC: RAD 16:12
PROVIDERS: PCP Nurse Practitioner Family; Visit Provider Nurse Practitioner Family
DX: S43.432A Superior glenoid labrum lesion of left shoulder, initial encounter (principal); M75.22 Bicipital tendinitis, left shoulder
CPT/HCPCS: 73221

== ENCOUNTER 2025-06-14 10:00 | Outpatient (RCR) | payer OTHER, SELFPAY ==
--- NOTE | 2025-06-14 10:44 | [facility].RHREAS ---
Rehab Reassessment Rehab OP Re-assessment Start: 05/26/25 10:00 Freq: Status: Active Protocol: Document 06/14/25 10:03 KAN (Rec: 06/14/25 10:44 [id number] E-signed By Sonia Mccarthy OT QuickDASH Activities Please rate your ability to do the following activities in the last week by selecting the number below the appropriate response. 1. Open a tight or No difficulty new jar. 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 3. Carry a shopping Mild difficulty bag or briefcase. 4. Wash your back. Mild difficulty 5. Use a knife to No difficulty cut food. 6. Recreational Mild difficulty activities in which you take some force or impact through your arm, shoulder, or hand (e.g., golf, hammering, tennis, etc.). 7. During the past Slightly week, to what extent has your arm, shoulder or hand problem interfered with your normal social activities with family, friends , neighbors or groups? 8. During the past Not limited at all week, were you limited in your work or other regular daily activites as a result of your arm, shoulder or hand problem? 9. Arm, shoulder or Mild hand pain. 10. Tingling (pins Mild and needles) in your arm, shoulder or hand. 11. During the past Mild difficulty week, how much difficulty have you had sleeping because of the pain in your arm, shoulder or hand? Quick DASH 19 Rehab Re-assessment Subjective Subjective It is still tight in this specific movements (External rotation). Objective Objective Notes Pt continues to be seen twice a week for outpatient OT services in order to address left shoulder deficits. Each session, pt engages in L shoulder AROM, AAROM, and strengthening exercises. Pt also receives PROM manual stretching to left shoulder in all planes: flexion, abduction, ER, and IR. Modalities are provided in order to decrease pain/inflammation. Assessment Progress Assessment Progressing as Expected Assessment Notes Pt very consistent about attending therapy sessions. Pt had an evaluation with ortho ~ 2 weeks ago after having a MRI completed. MRI had the following findings : 1. Tiny nondisplaced tear of the superior labrum from anterior to posterior superior inferior. Almost in a 360 degree morphology. 2. Mild tendinosis and tenosynovitis of the extra- articular biceps. [id number] tendinosis of the intra-articular biceps up to the labral anchor Ortho provided patient with steroid injection in shoulder joint ~2 weeks ago and she has a follow up with them in July 2025. They wanted her to continue with OT at this time until follow up appointment. She does feel her pain is somewhat improved since injection. Pt demonstrates SLIGHT improvement with AROM at left shoulder. Flex and abduction are now within normal limits. She continues to experience decreased AROM with ER and IR. She also has most of her pain with these two motions. Pt rates her worst pain now at 4-5/10. Current L shoulder AROM Flex: 180 degrees Abd: 180 degrees ER: 80 degrees IR: 50 degrees Goals Met: Short term goals: 1. Pt will increase left shoulder flexion to 160 degrees in order to complete daily overhead tasks independently ~50% of the time. 2. Pt will increase L shoulder abduction to 140 degrees to complete upper body dressing independently ~ 50% of the time. 3. Pt will increase L shoulder ER/IR to 75 degrees (ER ) and 45 degrees (IR) in order to complete lower body dressing (putting on and taking off belt) independently ~50% of the time. 4. Pt will increase strength to 4-/5 throughout left shoulder in order to complete heavier household tasks ( laundry, mopping, vacuuming) independently ~50% of the time. 5. Pt will verbalize decreased pain levels at worst in L shoulder to a 5/10 in order to complete daily ADLs independently ~50% of the time. 6. Pt will demonstrate improved endurance by completing left shoulder exercises for ~20 minutes prior to rest break in order to increase his tolerance for daily work activities. 7. 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 Pt will increase L shoulder flexion to 180 degrees in order to complete daily overhead tasks independently ~75% of the time. 2. Pt will increase L shoulder abduction to 180 degrees to complete upper body dressing independently ~ 75% of the time. OT Patient Goals OT Short Term All short term goals have been met at this time. 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 Pt will increase L shoulder ER/IR to 90 degrees (ER Goals ) and 60 degrees (IR)in order to complete lower body dressing (putting on and taking off belt) independently ~75% of the time. 4. Pt will increase strength to 4+/5 throughout left shoulder in order to complete heavier household tasks ( laundry, mopping, vacuuming) independently ~75% of the time. 5. Pt will verbalize decreased pain levels at worst in L shoulder to a 3/10 in order to complete daily ADLs independently ~75% of the time. 6. Pt will demonstrate improved endurance by completing L shoulder exercises for ~30 minutes prior to rest break in order to increase his tolerance for daily work activities. 7. Pt will demonstrate independence with HEP of Rotator cuff strengthening exercises to increase overall functional use of L shoulder for daily activities ~90% of the time. Plan Plan Continue with OT plan of care at this time in order to address all L shoulder deficits to increase overall functional ability at [facility]. Frequency of Therapy 2x's a week Duration of Therapy 4 more weeks Therapeutic Exercise Yes Including Home Exercise Program Manual Therapy Yes Techniques Neuromuscular Re- Yes education Therapeutic Yes Activities to Return to Previous Functional/Work Level ADL/Self Care Yes Education Dry Needling Yes Thermal Modalities Yes Electrical Yes Stimulation Ultrasound/ Yes Phonophoresis Iontophoresis Yes Massage Yes Eval/Re-Eval Yes Time and Billing Re-Eval Time 8 Re-Eval Billing 0 Units Charge for OT No reassessment? PHYSICIAN CERTIFICATION: I certify the specified therapy services for Shila Abad are required, authorized, and reviewed every 30 days.
== END 2025-06-14 23:59 | disposition home or self-care (01) ==
LOC: OT 10:00
PROVIDERS: PCP Nurse Practitioner Family; Visit Provider Nurse Practitioner Family
DX: M25.512 Pain in left shoulder (principal)
CPT/HCPCS: 97014; 97110; 97140; G0283

== ENCOUNTER 2025-07-19 10:00 | Outpatient (RCR) | payer OTHER, SELFPAY ==
--- NOTE | 2025-07-19 10:42 | [facility].RHREAS ---
Rehab Reassessment Rehab OP Re-assessment Start: 06/22/25 11:03 Freq: Status: Active Protocol: Document 07/19/25 09:54 RMREFUGIO (Rec: 07/19/25 10:41 [email or web address] [id number]) E-signed By Sonia Mccarthy OT Rehab Re-assessment Subjective Subjective The pain is the main issue. Objective Objective Notes Pt continues to be seen twice a week for outpatient OT services in order to address left shoulder deficits. Each session, pt engages in L shoulder AROM, AAROM, and strengthening exercises. Pt also receives PROM manual stretching to left shoulder in all planes: flexion, abduction, ER, and IR. Modalities are provided in order to decrease pain/inflammation. Assessment Progress Assessment Progressing as Expected Assessment Notes Pt has not attended therapy session in 12 days due to holiday and having COVID. Pt reports continued pain in left shoulder reaching 5/10 at worst. Pt does return to ortho on July 29 for follow up. Pt's AROM has improved significantly since initial evaluation; however pt's pain remains the main problem. She explains she felt minimal relief from steroid injection provided by ortho at previous follow up. Therapist recommends patient have a discussion with ortho about her plan for continued pain relief. Current L shoulder AROM Flex: 180 degrees Abd: 180 degrees ER: 80 degrees IR: 40 degrees Goals Met: Short term goals: 1. Pt will increase left shoulder flexion to 160 degrees in order to complete daily overhead tasks independently ~50% of the time. 2. Pt will increase L shoulder abduction to 140 degrees to complete upper body dressing independently ~ 50% of the time. 3. Pt will increase L shoulder ER/IR to 75 degrees (ER ) and 45 degrees (IR) in order to complete lower body dressing (putting on and taking off belt) independently ~50% of the time. 4. Pt will increase strength to 4-/5 throughout left shoulder in order to complete heavier household tasks ( laundry, mopping, vacuuming) independently ~50% of the time. 5. Pt will verbalize decreased pain levels at worst in L shoulder to a 5/10 in order to complete daily ADLs independently ~50% of the time. 6. Pt will demonstrate improved endurance by completing left shoulder exercises for ~20 minutes prior to rest break in order to increase his tolerance for daily work activities. 7. 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 Pt will increase L shoulder flexion to 180 degrees in order to complete daily overhead tasks independently ~75% of the time. 2. Pt will increase L shoulder abduction to 180 degrees to complete upper body dressing independently ~ 75% of the time. OT Patient Goals OT Short Term All short term goals have been met at this time. 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 Pt will increase L shoulder ER/IR to 90 degrees (ER Goals ) and 60 degrees (IR)in order to complete lower body dressing (putting on and taking off belt) independently ~75% of the time. 4. Pt will increase strength to 4+/5 throughout left shoulder in order to complete heavier household tasks ( laundry, mopping, vacuuming) independently ~75% of the time. 5. Pt will verbalize decreased pain levels at worst in L shoulder to a 3/10 in order to complete daily ADLs independently ~75% of the time. 6. Pt will demonstrate improved endurance by completing L shoulder exercises for ~30 minutes prior to rest break in order to increase his tolerance for daily work activities. 7. Pt will demonstrate independence with HEP of Rotator cuff strengthening exercises to increase overall functional use of L shoulder for daily activities ~90% of the time. Plan Plan Continue with OT plan of care until follow up with ortho to continue increasing overall functional use in left shoulder. Frequency of Therapy 1-2x's per week Duration of Therapy 4 more weeks Therapeutic Exercise Yes Including Home Exercise Program Manual Therapy Yes Techniques Neuromuscular Re- Yes education Therapeutic Yes Activities to Return to Previous Functional/Work Level ADL/Self Care Yes Education Thermal Modalities Yes Electrical Yes Stimulation Ultrasound/ Yes Phonophoresis Iontophoresis Yes Massage Yes Eval/Re-Eval Yes Time and Billing Re-Eval Time 8 Re-Eval Billing 0 Units Charge for OT No reassessment? PHYSICIAN CERTIFICATION: I certify the specified therapy services for Shila Abad are required, authorized, and reviewed every 30 days.
== END 2025-07-19 23:59 | disposition home or self-care (01) ==
LOC: OT 10:00
PROVIDERS: PCP Nurse Practitioner Family; Visit Provider Nurse Practitioner Family
DX: M25.512 Pain in left shoulder (principal)
CPT/HCPCS: 97014; 97032; 97110; 97140; G0283